=== PATIENT | male | born 1995 | race African-American/Black ===

== ENCOUNTER 2022-09-25 03:10 | Emergency (ER) | payer OTHER ==
[~2022-09-25] VITALS: Ht 167.6 cm; Wt 70.3 kg
--- NOTE | 2022-09-25 03:12 | NUR ---
PT [facility]. TAKEN TO BED 9
[2022-09-25] MEDS ORDERED: LORazepam 2 MG/ML VIAL ONE (03:13)
[2022-09-25 03:14] VITALS: BP 112/60
[2022-09-25] MEDS ORDERED: LORazepam 2 MG/ML VIAL IM ONE (03:15)
[2022-09-25] MEDS ORDERED: HALOPERIDOL IM 5 MG/ML VIAL IM ONE (03:30)
[2022-09-25 04:38] LABS: BASOPHILS % (AUTO) 0.3 % (0.0-2.0); EOSINOPHILS # (AUTO) 0.1 K/uL (0-0.4); EOSINOPHILS % (AUTO) 1.3 % (0.0-4.0); HEMATOCRIT 35.2 % (36-52); HEMOGLOBIN 11.5 g/dL (12.0-18.0); LYMPHOCYTES # (AUTO) 1.4 K/uL (2.0-11.5); LYMPHOCYTES % (AUTO) 17.2 % (20.5-51.1); MEAN CORPUSCULAR HEMOGLOBIN 27 pg (27-31); MEAN CORPUSCULAR HGB CONC 33 g/dL (33-37); MEAN CORPUSCULAR VOLUME 82.8 fL (80-94); MONOCYTES # (AUTO) 0.7 K/uL (0.8-1.0); NEUTROPHILS # (AUTO) 5.9 K/uL (1.8-7.7); NEUTROPHILS % (AUTO) 72.2 % (42.2-75.2); PLATELET COUNT (AUTO) 208 K/uL (140-450); RED BLOOD CELL COUNT(AUTO) 4.25 MIL/uL (4.20-6.10); RED CELL DISTRIBUTION WIDTH 15.2 % (11.6-13.7); WHITE BLOOD COUNT (AUTO) 8.1 K/uL (4.8-10.8)
[2022-09-25 04:39] LABS: ALBUMIN 3.3 g/dL (3.4-5.0); ANION GAP 10.3 (8-16); ASPARTATE AMINOTRANSFERASE 42 U/L (15-37); CARBON DIOXIDE 31.2 mmol/L (21-32); CHLORIDE 105 mmol/L (98-107); CREATININE 0.8 mg/dL (0.6-1.3); GFR ARICAN-AMERICAN 150 mL/min (>90); GLUCOSE 97 mg/dL (74-106); POTASSIUM 3.5 mmol/L (3.5-5.1); SODIUM SERUM 143 mmol/L (136-145); TOTAL BILIRUBIN 0.6 mg/dL (0.0-1.0); UREA NITROGEN, BLOOD 23 mg/dL (7-18)
[2022-09-25 04:42] LABS: SALICYLATE < 2.8 mg/dL (2.8-20.0)
[2022-09-25] MEDS ORDERED: NACL 0.9% 1,000 ML IV ONE ×2 (04:55→05:20)
--- NOTE | 2022-09-25 05:00 | NUR ---
PT RESTING, CALM. WILL CONTINUE TO MONITOR PAIN/COMFORT.
--- NOTE | 2022-09-25 06:20 | NUR ---
COVID SWAB COLLECTED AND SENT TO LAB
--- NOTE | 2022-09-25 06:30 | NUR ---
ATTEMPTED TO COLLECT URINE VIA CATHETER. UNABLE TO OBTAIN AT THIS TIME. PT VERY DISTURBED DURING PROCESS. OK BY DR. COOL TO TRY WHEN PT IS MORE SOBER
[2022-09-25 06:31] LABS: ACETAMINOPHEN < 0.5 ug/ml (10-30)
--- NOTE | 2022-09-25 07:19 | NUR ---
Received report from KEN Powell. Assumed care at this time.
--- NOTE | 2022-09-25 07:19 | NUR ---
REPORT TO MARYLIN
--- NOTE | 2022-09-25 08:25 | NUR ---
Patient appears to be resting in bed. Vital Signs within normal limits. Respirations even and unlabored. All needs met at this time.
[2022-09-25 11:11] VITALS: BP 123/80
--- NOTE | 2022-09-25 11:12 | NUR ---
Patient discharged with v/s stable. Written and verbal after care instructions given and explained. Ambulatory with steady gait. All questions addressed prior to discharge. Advised to follow up with PMD.
--- NOTE | 2022-09-25 11:12 | NUR ---
IV removed, catheter intact and site benign. Applied folded 4x4 gauze and tape to stop bleeding.
== END 2022-09-25 11:11 | disposition home or self-care (01) ==
LOC: MED 03:10
DX: R41.82 Altered mental status, unspecified (principal); Z20.822 Contact with and (suspected) exposure to COVID-19; M62.82 Rhabdomyolysis; T50.905A Adverse effect of unspecified drugs, medicaments and biological substances, initial encounter; Y92.89 Other specified places as the place of occurrence of the external cause
CPT/HCPCS: 36415; 80053; 82550; 82553; 85025; 87426; 96360; 96372; 99283; G0480; G0482; J2060; J7030

== ENCOUNTER 2022-10-14 16:35 | Emergency (ER) | payer OTHER ==
[~2022-10-14] VITALS: Ht 167.6 cm; Wt 68.0 kg
[2022-10-14 16:38] VITALS: BP 122/87
--- NOTE | 2022-10-14 16:42 | NUR ---
HR 127, HR KURERA AWARE. PT AMBULATORY WITH STEADY GAIT. A/O X4.
--- NOTE | 2022-10-14 16:45 | NUR ---
PT LEFT WITHOUT DC PAPERS. DR NARANJO AWARE
== END 2022-10-14 16:45 | disposition home or self-care (01) ==
LOC: MED 16:35
DX: R41.82 Altered mental status, unspecified (principal); J45.909 Unspecified asthma, uncomplicated; F12.90 Cannabis use, unspecified, uncomplicated; F15.90 Other stimulant use, unspecified, uncomplicated; F17.200 Nicotine dependence, unspecified, uncomplicated
CPT/HCPCS: 99283